=== PATIENT | male | born 1965 | race Caucasian/White ===

== ENCOUNTER 2018-06-27 17:21 | Emergency (ER) | payer SELFPAY ==
[~2018-06-27] VITALS: Ht 172.7 cm; Wt 82.0 kg
[2018-06-27 20:38] LABS: COLOR URINE AMBER (YELLOW); KETONES URINE TRACE (NEGATIVE); LEUKOCYTE ESTERASE URINE 1+ (NEGATIVE); NITRITE URINE NEGATIVE (NEGATIVE); OCCULT BLOOD URINE 3+ (NEGATIVE); PROTEIN URINE 2+ (NEGATIVE); SPECIFIC GRAVITY URINE 1.024 (1.005-1.030); UROBILINOGEN URINE 0.2 E.U./dL (0.2-1.0)
[2018-06-27 20:41] LABS: CLARITY URINE HAZY (CLEAR)
[2018-06-27] MEDS ORDERED: AMOXICILLIN 500 MG CAPSULE PO ONE (21:00)
[2018-06-27 21:38] VITALS: BP 115/68
== END 2018-06-27 21:42 | disposition home or self-care (01) ==
LOC: ER 21:27
DX: N30.00 Acute cystitis without hematuria (principal); F12.10 Cannabis abuse, uncomplicated; Z88.0 Allergy status to penicillin; Z98.890 Other specified postprocedural states; Z87.828 Personal history of other (healed) physical injury and trauma
CPT/HCPCS: 81003; 82962; 87086; 99284

== ENCOUNTER 2018-09-29 05:28 | Emergency (ER) | payer SELFPAY ==
[~2018-09-29] VITALS: Ht 172.7 cm; Wt 78.0 kg
[2018-09-29 06:15] VITALS: BP 156/88
== END 2018-09-29 08:23 | disposition home or self-care (01) ==
LOC: ER 05:28
DX: H92.01 Otalgia, right ear (principal); R51 Headache; F12.10 Cannabis abuse, uncomplicated; F17.200 Nicotine dependence, unspecified, uncomplicated; Z88.0 Allergy status to penicillin; Z98.890 Other specified postprocedural states
CPT/HCPCS: 70480; 99284